=== PATIENT | female | born 1970 | race Caucasian/White ===

== ENCOUNTER → 2018-06-21 | Outpatient (CLI) | payer BC | LOC: MC.RAD 07:20 | DX: Z12.31 Encounter for screening mammogram for malignant neoplasm of breast (principal) ==

== ENCOUNTER → 2019-08-05 | Outpatient (CLI) | payer BC | LOC: MC.RAD 16:37 | DX: Z12.31 Encounter for screening mammogram for malignant neoplasm of breast (principal) ==

== ENCOUNTER → 2020-08-09 | Outpatient (CLI) | payer BC | LOC: MC.RAD 08:28 | DX: Z12.31 Encounter for screening mammogram for malignant neoplasm of breast (principal) ==

== ENCOUNTER → 2022-08-29 | Outpatient (CLI) | payer BC ==
[~2022-08-29] VITALS: Ht 165.1 cm; Wt 123.0 kg
[~2022-08-29] MED LIST: DIOVAN 40MG40 MG; DIOVAN HCT 25 M1 TAB PO; EZALLOR SPRINKL10 MG; PROTONIX20 MG
[2022-08-29 11:50] VITALS: BP 151/80; PULSE 77; TEMP 98.2
[2022-08-29 13:00] VITALS: BP 133/84; PULSE 69
== END ==
LOC: COL.RAD 11:26
DX: E04.1 Nontoxic single thyroid nodule (principal)
CPT/HCPCS: 32106